=== PATIENT | female | born 1990 | race Caucasian/White ===

== ENCOUNTER 2022-09-18 10:40 | Emergency (ER) | payer BC ==
[2022-09-18] MEDS ORDERED: Ondansetron 4 MG/2 ML SDV IVPUSH ONE (11:53)
[2022-09-18] MEDS ORDERED: Sodium Chloride 0.9% 1,000 ML IV SCH (12:00)
[2022-09-18 12:08] LABS: BASOPHILS PERCENT AUTO 0.2 % (0.1-1.3); EOSINOPHILS PERCENT AUTO 0.3 % (0.0-5.4); HEMOGLOBIN 13.6 g/dL (11.2-15.5); IMMATURE GRAN PERCENT AUTO 0.2 % (0.0-0.7); LYMPHOCYTES ABSOLUTE AUTO 1.28 K/uL (0.8-3.3); MEAN CORPUSCULAR HEMOGLOBIN 29.2 pg (31.6-35.5); MEAN CORPUSCULAR HGB CONC 34.9 g/dL (31.6-35.5); MEAN CORPUSCULAR VOLUME 83.9 fL (81.4-99.0); MONOCYTES ABSOLUTE AUTO 0.33 K/uL (0.20-0.90); MONOCYTES PERCENT AUTO 5.4 % (3.3-12.6); NEUTROPHILS ABSOLUTE AUTO 4.44 K/uL (1.0-7.6); NEUTROPHILS PERCENT AUTO 72.9 % (40.0-78.1); PLATELET COUNT,PLT 237 K/uL (130-375); RED BLOOD CELL COUNT 4.65 M/uL (3.77-5.24); WHITE BLOOD CELL COUNT,WBC 6.1 K/uL (3.2-11.0)
[2022-09-18 12:15] LABS: BASOPHILS ABSOLUTE AUTO 0.01 K/uL (0.00-0.10); EOSINOPHILS ABSOLUTE AUTO 0.02 K/uL (0.00-0.40); IMMATURE GRAN ABSOLUTE AUTO 0.01 K/uL (0.00-0.23)
== END 2022-09-18 14:20 | disposition home or self-care (01) ==
LOC: JP.ED 10:40
DX: O20.9 Hemorrhage in early pregnancy, unspecified (principal); Z3A.01 Less than 8 weeks gestation of pregnancy; Z88.1 Allergy status to other antibiotic agents
CPT/HCPCS: 36415; 84702; 85025; 96361; 96374; 99283; 99284; J2405; J7030